=== PATIENT | male | born 1950 | race Caucasian/White ===

== ENCOUNTER 2018-11-26 14:36 | Emergency (ER) | payer MEDICARE ==
[~2018-11-26] VITALS: Ht 182.9 cm; Wt 97.5 kg
[~2018-11-26 14:36] MED LIST: ASPI81CH PO; ASPI81EC PO; ATEN25 PO; ATOR10; Antivert12.5 MG PO; Aspir 8181 MG PO; CHOL10002 PO; Cipro500 MG PO; FISH1000 PO; FLEC50 PO; Flagyl500 MG PO; GABA300 PO; GLUCHON PO; HYDACE10B PO; LISI5 PO; LOSHYD PO; LOSHYD100 PO; MECL25; MECL25 PO; NICO2 PO; OMEP40CA12 PO; PENVK500; SIMV40 PO; UBID100 PO; WARF1 PO; WARF5 PO; WARF6 PO; WARF7.5 PO
[2018-11-26] MEDS ORDERED: 8 Hour C500 MG PO (14:52)
[2018-11-26] MEDS ORDERED: GLUC500 PO (14:53)
[2018-11-26] MEDS ORDERED: OLMESARTAN-HCT1 EAC1 PO (14:54)
[2018-11-26] MEDS ORDERED: OMEPRAZOLE20 MG PO (14:54)
[2018-11-26] MEDS ORDERED: WARF7.5 PO (14:55)
[2018-11-26] MEDS ORDERED: Pravachol40 MG PO (14:56)
[2018-11-26] MEDS ORDERED: DICL25ER PO (14:56)
== END 2018-11-26 16:11 | disposition home or self-care (01) ==
LOC: ER 14:36
DX: H11.31 Conjunctival hemorrhage, right eye (principal); I10 Essential (primary) hypertension; G89.29 Other chronic pain; M54.2 Cervicalgia; Z87.891 Personal history of nicotine dependence; Z88.5 Allergy status to narcotic agent; Z79.82 Long term (current) use of aspirin; Z79.01 Long term (current) use of anticoagulants; Z79.899 Other long term (current) drug therapy
CPT/HCPCS: 99283

== ENCOUNTER 2023-10-03 12:54 | Emergency (ER) | payer MEDICARE ==
[~2023-10-03] VITALS: Ht 193 cm; Wt 108.9 kg
[~2023-10-03 12:54] MED LIST changes: +C COMPLEX1000 M1 PO; +DICL25ER PO; +GLUC500 PO; +OLMESARTAN-HCT1 EAC1 PO; +OMEPRAZOLE20 MG PO; +PRAV20 PO
[2023-10-03 13:22] LABS: BASOPHILS ABSOLUTE AUTO 0.03 K/mm3 (0.00-0.23); BASOPHILS PERCENT AUTO 0 % (0-2); EOSINOPHILS ABSOLUTE AUTO 0.18 K/mm3 (0.00-0.68); EOSINOPHILS PERCENT AUTO 2 % (0-6); Hematocrit 39.3 % (37.0-53.0); Hemoglobin 12.4 g/dL (13.5-17.5); IMMATURE GRAN ABSOLUTE AUTO 0.04 K/mm3 (0.00-0.10); IMMATURE GRAN PERCENT AUTO 1 % (0-1); LYMPHOCYTES ABSOLUTE AUTO 0.72 K/mm3 (0.84-5.20); LYMPHOCYTES PERCENT AUTO 9 % (21-46); MONOCYTES ABSOLUTE AUTO 0.42 K/mm3 (0.16-1.47); MONOCYTES PERCENT AUTO 5 % (4-13); Mean Corpuscular HGB 30.6 pg (26.0-34.0); Mean Corpuscular HGB Conc 31.6 g/dL (31.5-36.5); Mean Corpuscular Volume 97 fL (80-100); Mean Platelet Volume 11.4 fL (9.1-12.4); NEUTROPHILS ABSOLUTE AUTO 6.35 K/mm3 (1.96-9.15); NEUTROPHILS PERCENT AUTO 82 % (41-73); Platelet Count 205 K/mm3 (150-400); RDW Coefficient Variation 13.8 % (11.7-14.2); RDW Standard Deviation 49.4 fL (35.1-46.3); Red Blood Cell Count 4.05 M/mm3 (4.30-5.90); White Blood Cell Count 7.74 K/mm3 (4.00-11.30)
[2023-10-03 13:34] LABS: International Normalized Ratio 3.43; Prothrombin Time Results 33.5 Sec (9.7-11.5)
[2023-10-03 13:35] LABS: Albumin, Blood 4.1 g/dL (3.4-5.0); Albumin/Globulin Ratio 1.2 (0.8-1.8); Bilirubin, Total 0.9 mg/dL (0.1-1.0); Bun/Creatinine Ratio 16.5 (12.0-20.0); Creatinine, Blood 1.15 mg/dL (0.60-1.20); Globulin, Blood 3.5 g/dL (2.2-4.0); Potassium, Blood 4.4 mmol/L (3.5-5.5); Total Protein, Blood 7.6 g/dL (6.4-8.2)
[2023-10-03] MEDS ORDERED: GLUCHON PO (15:37)
[2023-10-03] MEDS ORDERED: TAMS.4ER PO (15:38)
[2023-10-03] MEDS ORDERED: [UNRECOGNIZED DRUG - OTHER] (15:39)
[2023-10-03] MEDS ORDERED: HEMA-PLEX (15:40)
[2023-10-03] MEDS ORDERED: LORA10ER PO (15:41)
[2023-10-03] MEDS ORDERED: ERGO400 (15:42)
[2023-10-03] MEDS ORDERED: VALS80 PO (15:42)
[2023-10-03] MEDS ORDERED: ESCI10 PO (15:43)
[2023-10-03] MEDS ORDERED: DONE5 PO (15:44)
[2023-10-03] MEDS ORDERED: GABA300 PO (15:45)
[2023-10-03] MEDS ORDERED: CLOP75 PO (15:46)
[2023-10-03] MEDS ORDERED: TORSE20 PO (15:49)
[2023-10-03 18:34] VITALS: BP 162/75
== END 2023-10-03 18:41 | disposition home or self-care (01) ==
LOC: ER 12:54
PROVIDERS: Physician Assistant
DX: I48.20 Chronic atrial fibrillation, unspecified (principal); R55 Syncope and collapse; E87.8 Other disorders of electrolyte and fluid balance, not elsewhere classified; Z95.2 Presence of prosthetic heart valve; Z79.01 Long term (current) use of anticoagulants
CPT/HCPCS: 71046; 80053; 83880; 84484; 85025; 85610; 93005; 93010; 99284-25